=== PATIENT | male | born 1990 | race Caucasian/White ===

== ENCOUNTER 2018-07-06 13:43 | Emergency (ER) | payer SELFPAY ==
[2018-07-06 13:55] VITALS: BP 128/80
[2018-07-06] MEDS ORDERED: CARBAMIDE PEROXIDE 15 ML OTIC.BTL LEFTEAR ONE (14:25)
--- NOTE | 2018-07-06 14:25 | EDPHY ---
H & P Time Seen by Provider: 07/06/18 13:55 HPI/ROS: CHIEF COMPLAINT: Ear pain History by patient HISTORY OF PRESENT ILLNESS: 28-year-old otherwise healthy man presents complaining of 10 days of bilateral ear pain and itchiness. Patient states symptoms have gotten progressively worsened over the past 3 days he has had significant hearing loss, ringing in his ear and foul-smelling drainage from his left ear. He says he has been using his pinky finger to clean out his ear but not put putting anything else in there. He says he started taking some oral antibiotics that his mother had for the past 3 days with no change. He denies any recent fever or URI symptoms. He denies any runny nose or cough. He denies any sore throat. REVIEW OF SYSTEMS: As in HPI, and all other systems reviewed and are negative Smoking Status: Former smoker Physical Exam: General Appearance: Alert and no distress. Head: normocephalic, atraumatic, no sinus tenderness Eyes: Pupils equal and round no injection. Ears: TM right canal obstructed with cerumen, left canal doctors cerumen, no mastoid tenderness, no tragal tenderness OP: mucus membranes moist, no tonsillar enlargement, no exudates Neck: no meningismus, no cervical nodes, no submandibular nodes Respiratory: Chest is nontender, lungs are clear to auscultation. No wheezes, rales, rhonchi Cardiac: regular rate and rhythm. S1, S2, no murmurs, gallops, rubs appreciated. Gastrointestinal: Abdomen is soft and nontender, no masses, bowel sounds normal. Musculoskeletal: Neck is supple and nontender. Extremities have full range of motion and are nontender. Skin: No rashes or lesions. Constitutional: Initial Vital Signs Temperature (C) 36.9 C 07/06/18 13:51 Heart Rate 69 07/06/18 13:51 Respiratory Rate 16 07/06/18 13:51 Blood Pressure 128/80 H 07/06/18 13:51 O2 Sat (%) 98 07/06/18 13:51 O2 Delivery Mode Room Air Allergies/Adverse Reactions: No Known Allergies Allergy (Unverified 07/06/18 13:55) Home Medications: Medication Instructions Recorded Amoxicillin/Clavulanate Pot 875 mg PO BID #14 tab 07/06/18 [Augmentin 875 MG TAB (*)] Neomy Sulf/Polymyx B Sulf/Hc 4 drops OT TID #1 otic.btl 07/06/18 [Cortisporin Otic Suspension] MDM/Departure - MDM Medications Given: Discontinued Medications Carbamide Peroxide (Debrox) 5 drop LEFTEAR EDNOW ONE Stop: 07/06/18 14:26 Last Admin: 07/06/18 14:22 Dose: 5 drops ED Course/Re-evaluation: 28-year-old man presents with decreased hearing and pain and drainage in left ear and milder symptoms on the right. I mechanically removed cerumen on the right with an ear curette and I was able to visualize the lower half of his TM which appeared thickened but not red, landmarks are not visible. I attempted to mechanically removed cerumen from the left ear, but was unable to remove enough to visualize the TM and appears to have severe cerumen impaction. There is also a foul smell from the left ear. Therefore the left ear will be irrigated. Left ear was irrigated by the nurse. He says his hearing was greatly improved after the irrigation in his left ear. On repeat exam patient had red inflamed TM as well as red swollen canal with scant discharge. Therefore the patient was treated for both otitis externa and otitis media. Was given PCP follow-up referrals and we discussed return precautions. - Depart Disposition: Home, Routine, Self-Care Clinical Impression: Impacted cerumen of both ears Otitis externa Qualifiers: Otitis externa type: unspecified type Chronicity: acute Laterality: left Qualified Code(s): H60.502 - Unspecified acute noninfective otitis externa, left ear Otitis media Qualifiers: Otitis media type: unspecified Chronicity: acute Qualified Code(s): H66.90 - Otitis media, unspecified, unspecified ear Condition: Good Instructions: Otitis Externa (ED), Ear Infection (ED) Additional Instructions: You were seen by Dr. Maranda Richards today. We have irrigated the wax out of your left ear today and removed thorax 3 right ear. We are treating you for an infection in her left ear canal and her left middle ear. Take antibiotics as prescribed. I recommend taking probiotics in between doses. He take ibuprofen or Tylenol as needed for pain. Please establish primary care. Return for any worsening or new concerns. Prescriptions: Amoxicillin/Clavulanate Pot [Augmentin 875 MG TAB (*)] 875 mg PO BID #14 tab Neomy Sulf/Polymyx B Sulf/Hc [Cortisporin Otic Suspension] 4 drops OT TID #1 otic.btl Referrals: NONE *PRIMARY CARE P,. [Primary Care Provider] - As per Instructions
== END 2018-07-06 15:27 | disposition home or self-care (01) ==
LOC: CED 13:43
PROC: 3E1B78Z Irrigation of Ear using Irrigating Substance, Via Natural or Artificial Opening (ICD-10-PCS; principal; 2018-07-06)
PROC: 09C0XZZ Extirpation of Matter from Right External Ear, External Approach (ICD-10-PCS; principal; 2018-07-06)
DX: H61.23 Impacted cerumen, bilateral (principal); H60.502 Unspecified acute noninfective otitis externa, left ear; H66.92 Otitis media, unspecified, left ear